=== PATIENT | male | born 1970 | race Caucasian/White ===

== ENCOUNTER → 2020-06-22 11:27 | Outpatient (BNVA) | payer OTHER, SELFPAY | PROVIDERS: PCP Hospitalist; Visit Provider Physician Assistant Medical | DX: S63.502A Unspecified sprain of left wrist, initial encounter (principal); S70.01XA Contusion of right hip, initial encounter; S29.011A Strain of muscle and tendon of front wall of thorax, initial encounter; S23.41XA Sprain of ribs, initial encounter; W01.198A Fall on same level from slipping, tripping and stumbling with subsequent striking against other object, initial encounter | CPT/HCPCS: 73110; 73502; 99203 ==

== ENCOUNTER → 2020-06-24 11:45 | Outpatient (BNVA) | payer OTHER, SELFPAY | PROVIDERS: PCP Hospitalist; Visit Provider Physician Assistant Medical | DX: S70.01XA Contusion of right hip, initial encounter (principal); S63.502A Unspecified sprain of left wrist, initial encounter; S20.211A Contusion of right front wall of thorax, initial encounter; W18.30XA Fall on same level, unspecified, initial encounter; M46.1 Sacroiliitis, not elsewhere classified | CPT/HCPCS: 99213 ==

== ENCOUNTER → 2020-06-29 14:20 | Outpatient (BNVA) | payer OTHER, SELFPAY | PROVIDERS: PCP Hospitalist; Visit Provider Physician Assistant Medical | DX: S70.01XA Contusion of right hip, initial encounter (principal); S63.502A Unspecified sprain of left wrist, initial encounter; W18.30XA Fall on same level, unspecified, initial encounter; M46.1 Sacroiliitis, not elsewhere classified; Z96.641 Presence of right artificial hip joint | CPT/HCPCS: 99213 ==

== ENCOUNTER → 2020-07-06 14:13 | Outpatient (BNVA) | payer OTHER, SELFPAY | PROVIDERS: PCP Hospitalist; Visit Provider Physician Assistant Medical | DX: S70.01XD Contusion of right hip, subsequent encounter (principal); S63.502D Unspecified sprain of left wrist, subsequent encounter; S20.212D Contusion of left front wall of thorax, subsequent encounter; T84.091D Other mechanical complication of internal left hip prosthesis, subsequent encounter; W18.30XD Fall on same level, unspecified, subsequent encounter | CPT/HCPCS: 99213 ==

== ENCOUNTER → 2020-07-21 13:47 | Outpatient (BNVA) | payer OTHER, SELFPAY | PROVIDERS: PCP Hospitalist; Visit Provider Physician Assistant Medical | DX: S63.502D Unspecified sprain of left wrist, subsequent encounter (principal); X58.XXXD Exposure to other specified factors, subsequent encounter | CPT/HCPCS: 99213 ==

== ENCOUNTER 2020-08-01 12:52 | Outpatient (REF) | payer OTHER, SELFPAY ==
--- NOTE | 2020-08-01 13:05 | MR_ITS ---
EXAMINATION: MRI WRIST, LEFT, WITHOUT CONTRAST CLINICAL INFORMATION: Persistent wrist pain and decreased range of motion, instability, status post fall in June 2020. Patient reports posterior pain, weakness, clicking. COMPARISON: Radiographs of wrist from 06/22/2020 TECHNIQUE: MR imaging of the left wrist was performed using standard sequences on a high-field 1.5 Jessica magnet. FINDINGS: BONES AND JOINTS: The distal radius, ulna and radioulnar joint are intact. Small amount fluid is present within the distal radioulnar joint. The ulna is properly positioned within the sigmoid notch. Carpal bones have normal alignment. Articular cartilage of the wrist is preserved. Small effusion of the radiocarpal joint could be sequela of recent wrist trauma. There is diffuse bone marrow edema (bone bruising) of the lunate without a discrete fracture line. Also, focal bone marrow edema is observed in the radial aspect of the adjacent triquetrum. There is subcortical cystic change and mild edema-like signal intensity in the distal capitate, possibly sequela old trauma. The capitate cystic change is associated with adjacent 0.3 cm soft tissue ganglion cyst (axial image 9 of 22, series 5). TRIANGULAR FIBROCARTILAGE: The triangular fibrocartilage has an intact appearance on the fat-suppressed proton density weighted sequence. The coronal T2-weighted GRE sequence suggests possibility of a very thin degenerative perforation in the triangular fibrocartilage (coronal image 12 of 24, series 8). The peripheral, fascicular attachments of the TFC to the ulnar styloid and fovea are intact. The volar and dorsal radioulnar ligaments, and ulnotriquetral ligament, are unremarkable. INTRINSIC LIGAMENTS: Scapholunate and lunatotriquetral ligaments are intact. TENDONS: Flexor and extensor tendons of the wrist are unremarkable. No evidence of tendon tear or de Quervain's tenosynovitis. NERVES AND OTHER SOFT TISSUES: Median nerve has normal size and signal intensity as it courses through the carpal tunnel. The radial and ulnar neurovascular bundles are unremarkable. No lesions within Guyon's canal. No ganglion cyst or other soft tissue mass at the wrist. MR/MR wrist LT wo con IMPRESSION: * Bone bruises of the lunate and adjacent triquetrum. However, no discrete fracture or malalignment at the wrist. * Posttraumatic small joint effusions of the radiocarpal joint and distal radioulnar joint. * No evidence of a traumatic ligament injury at the wrist. * Intraosseous and small soft tissue ganglion of the distal capitate.
== END 2020-08-01 12:53 | disposition home or self-care (01) ==
LOC: HO.MRI 12:52
PROVIDERS: Visit Provider Internal Medicine
DX: M25.332 Other instability, left wrist (principal)
CPT/HCPCS: 73221

== ENCOUNTER → 2020-08-04 14:21 | Outpatient (BNVA) | payer OTHER, SELFPAY | PROVIDERS: Visit Provider Physician Assistant Medical | DX: M19.032 Primary osteoarthritis, left wrist (principal); M24.131 Other articular cartilage disorders, right wrist; S60.212A Contusion of left wrist, initial encounter; X50.1XXA Overexertion from prolonged static or awkward postures, initial encounter | CPT/HCPCS: 99213 ==

== ENCOUNTER → 2020-08-15 09:53 | Outpatient (BNVA) | payer OTHER, SELFPAY | PROVIDERS: Visit Provider Orthopaedic Surgery | DX: S69.92XA Unspecified injury of left wrist, hand and finger(s), initial encounter (principal) | CPT/HCPCS: 99202 ==

== ENCOUNTER → 2020-09-05 11:00 | Outpatient (BNVA) | payer OTHER, SELFPAY | PROVIDERS: PCP Hospitalist; Visit Provider Orthopaedic Surgery | DX: S69.92XD Unspecified injury of left wrist, hand and finger(s), subsequent encounter (principal) | CPT/HCPCS: 99212 ==

== ENCOUNTER 2020-10-19 13:24 | Outpatient (REF) | payer OTHER, SELFPAY ==
--- NOTE | ~2020-10-19 | XR_ITS ---
EXAMINATION: XR WRIST, LEFT CLINICAL INFORMATION: Pain COMPARISON: Previous x-ray and MRI June and July 2020 TECHNIQUE: PA, lateral, and oblique views of the left wrist. FINDINGS: The bones and soft tissues are normal. No fracture. Alignment is anatomic with normal joint spaces. No erosions or abnormal soft tissue calcifications. XR/XR wrist LT min 3V IMPRESSION: Normal left wrist.
== END 2020-10-19 13:25 | disposition home or self-care (01) ==
LOC: HO.HOSX 13:24
PROVIDERS: PCP Hospitalist; Visit Provider Orthopaedic Surgery
DX: M25.532 Pain in left wrist (principal)
CPT/HCPCS: 73110; 99212

== ENCOUNTER 2020-12-20 17:24 | Outpatient (REF) | payer OTHER, SELFPAY | END 2020-12-20 17:25 | disposition home or self-care (01) | LOC: HO.HOSX 17:24 | PROVIDERS: Visit Provider Orthopaedic Surgery | DX: Z13.89 Encounter for screening for other disorder (principal) ==

== ENCOUNTER → 2020-12-21 14:03 | Outpatient (BNVA) | payer OTHER, SELFPAY | PROVIDERS: PCP Hospitalist; Visit Provider Orthopaedic Surgery | DX: S69.92XD Unspecified injury of left wrist, hand and finger(s), subsequent encounter (principal) | CPT/HCPCS: 99212 ==

== ENCOUNTER 2021-06-20 09:52 | Emergency (ER) | payer BC, SELFPAY ==
--- NOTE | 2021-06-20 | ECG_ITS ---
Test Reason : chestpain Blood Pressure : / mmHG Vent. Rate : 078 BPM Atrial Rate : 078 BPM P-R Int : 126 ms QRS Dur : 140 ms QT Int : 398 ms P-R-T Axes : 037 -12 029 degrees QTc Int : 453 ms Sinus rhythm with marked sinus arrhythmia Right bundle branch block Abnormal ECG When compared with ECG of 03-OCT-2008 05:05, Right bundle branch block is now Present Referred By: Generic ED Physician Electronically Signed By:
--- NOTE | ~2021-06-20 | XR_ITS ---
EXAMINATION: XR CHEST CLINICAL INFORMATION: Chest pain COMPARISON: None TECHNIQUE: Frontal view of the chest was obtained. FINDINGS: The lungs are clear. There is no pneumothorax, pleural reaction, airspace consolidation, or effusion. No groundglass opacities. The heart is normal in size. The vascularity is normal. The hilar and mediastinal contours and bony structures are unremarkable. XR/XR chest 1V IMPRESSION: Unremarkable examination.
[2021-06-20 10:20] VITALS: BP 146/85; PULSE 87; RESP 18; TEMP 36.1; O2SAT 97; BMI 32.1
--- NOTE | 2021-06-20 10:33 | ED.CHESTPAIN ---
HPI - Chest Pain General Chief Complaint: Chest Pain Stated Complaint: Chest pain Time Seen by Provider: 06/20/21 10:24 Source: patient Mode of arrival: ambulatory Limitations: no limitations History of Present Illness HPI narrative: 50-year-old male with a history of psoriasis who presents to the ER with 3 days of intermittent palpitations and intermittent sharp central and left chest pains. He reports 3 days ago he noticed frequent palpitations that started when he was sitting down. He states it feels like an extra beat. Yesterday with these palpitations he started getting a sharp brief pain associated with them. The pain is in his left and central chest and radiate through him to his back. The pains are brief and do not last. He is slightly nauseous and dizzy at times. He denies SOB. MD complaint: chest pain and other (palpitations) Related Data Home Medications Medication Instructions Recorded Confirmed No Known Home Meds 08/15/20 08/15/20 Allergies Allergy/AdvReac Type Severity Reaction Status Date / Time No Known Allergies Allergy Unknown NOT Verified 12/21/20 14:13 APPLICABLE Review of Systems Review of Systems: Constitutional: No Fever, No Chills ENT/Mouth: No sore throat, No Rhinorrhea, No Swallowing Difficulty Cardiovascular: + Chest Pain, No SOB, No Orthopnea, No Edema, +palpitations Respiratory: No Cough, No Sputum, No Wheezing, No dyspnea Gastrointestinal: No Nausea, No Vomiting, No Diarrhea, No abdominal Pain Genitourinary: No Dysuria, No Urinary Frequency, No Hematuria Musculoskeletal: No joint pain, No Myalgias Skin: No Skin Lesions, No rash Neuro: No Weakness, No Numbness, No Dizziness, No Headache Psych: + Anxiety/Panic, No Depression Heme/Lymph: No Bruising, No Lymphadenopathy PMFSH Past Medical History Medical History (Updated 06/20/21 @ 13:52 by JOHANA Delong) Psoriasis Surgical History Status post total hip replacement, right (~2012) Social History Social History Alcohol intake: current Patient Tobacco Use Status: Never used Tobacco Current occupational status: employed Current occupation: [employer]- Right Handed Physical Exam Vital Signs: Vital Signs: Last Vital Signs Temp 97.0 F 06/20/21 10:20 Pulse 84 06/20/21 12:57 Resp 16 06/20/21 12:57 BP 133/77 06/20/21 12:57 Pulse Ox 96 06/20/21 12:57 Body Mass Index 32.1 Appearance: Alert. Oriented X3. No acute distress. Eyes: Pupils equal, round and reactive to light. ENT: Pharynx normal. Neck: Normal inspection. Neck supple. CVS: Normal heart rate and rhythm. Pulses normal. Respiratory: No respiratory distress. Breath sounds normal. Abdomen: Soft and nontender. +BS x4 Skin: Skin warm and dry. Normal skin color. Normal skin turgor. No rashes. Extremities: No lower extremity edema. Neuro: Oriented X 3. No motor deficit. No sensory deficit. Course Course Course Narrative: 50 y/o male with history of psoriatic arthritis presenting with palpitations and intermittent chest pains for the last 1-3 days. EKG on arrival showing RBBB, no recent prior. No STEMI. He currently has no pain but reports intermittent sensation of extra beats. He states they can occur every 10-15 minutes. No SOB. Doubt ACS. Will check basic labs, troponin and DDIMER to r/o PE. Reevaluation(s) Reevaluation #1: Troponin negative x1. He continues to be chest pain free. Reevaluation #2: Troponin negative x2 and DDIMER negative. His electrolytes and TSH are within normal limits. Unclear etiology of his palpitations but life threatened causes have been ruled out. He admits to underlying anxiety and is wondering if this can be contributing. He was counseled on anxiety, caffiene intake and given referral to Cardiology for further workup. Stable for d/c home with outpatient follow up. Instructed to return if pains worsen or change. MDM - Chest Pain Lab Data Attestation: I reviewed the patient's lab results. Result diagrams: 06/20/21 10:42 06/20/21 10:42 Labs: Lab Results 06/20/21 06/20/21 06/20/21 Range/Units 10:41 10:42 10:42 WBC 6.0 (4.8-10.8) X10*3/uL RBC 4.85 (4.60-5.80) X10*6/uL Hgb 16.1 (14.0-18.0) g/dl Hct 46.3 (42-52) % MCV 95.5 (80-98) fL MCH 33.2 H (27.0-33.0) pg MCHC 34.8 (31.0-36.0) g/dl RDW 11.3 (11.0-16.0) % Plt Count 198 (160-400) X10*3/uL MPV 8.7 L (9.4-12.4) fL Immature Gran % (Auto) 0.3 (0.0-0.4) % Neut % (Auto) 73.2 H (45-73) % Lymph % (Auto) 14.9 L (20-40) % [place] % (Auto) 10.1 (2-11) % Eos % (Auto) 1.0 (0-4) % Baso % (Auto) 0.5 (0-2) % Lymph # (Auto) 0.9 L (1.2-4.9) X10*3/uL [place] # (Auto) 0.6 (0.1-1.2) X10*3/uL Eos # (Auto) 0.1 (0.0-0.4) X10*3/uL Baso # (Auto) 0.0 (0.0-0.2) X10*3/uL Abs Immat Gran (auto) 0.02 (0.00-0.03) X10*3/uL Absolute Neuts (auto) 4.4 (2.0-8.3) X10*3/uL Absolute Nucleated RBC 0.000 (0.0-0.012) X10*3/uL Nucleated RBC % (auto) 0.0 (0.0-0.2) /100WBC D-Dimer NG/ML Sodium 138 (135-145) mmol/L Potassium 4.7 (3.3-5.1) mmol/L Chloride 102 (96-108) mmol/L Carbon Dioxide 24 (22-29) mmol/L Anion Gap 17 (12-20) BUN 9 (9-16) mg/dL Creatinine 1.02 (0.5-1.4) mg/dL Estim Creat Clear Calc 87.1 Estimated GFR > 60 Random Glucose 108 (60-115) mg/dL Calcium 9.5 (8.4-10.2) mg/dL Magnesium 2.0 (1.6-2.6) mg/dL Total Bilirubin 0.7 (0.0-1.0) mg/dL Direct Bilirubin 0.3 (0.0-0.5) mg/dL AST 40 H (5-37) U/L ALT 63 H (0-40) U/L Alkaline Phosphatase 74 (39-117) U/L Troponin I High Sens (<3.5-35.0) ng/L Total Protein 7.2 (6.5-8.0) g/dL Albumin 4.4 (3.5-5.0) g/dL TSH 2.18 (0.32-4.0) uIU/mL COVID-19 ([facility]) Negative (Negative) COVID-19 Clin Com See Note 06/20/21 06/20/21 06/20/21 Range/Units 10:42 13:02 13:02 WBC (4.8-10.8) X10*3/uL RBC (4.60-5.80) X10*6/uL Hgb (14.0-18.0) g/dl Hct (42-52) % MCV (80-98) fL MCH (27.0-33.0) pg MCHC (31.0-36.0) g/dl RDW (11.0-16.0) % Plt Count (160-400) X10*3/uL MPV (9.4-12.4) fL Immature Gran % (Auto) (0.0-0.4) % Neut % (Auto) (45-73) % Lymph % (Auto) (20-40) % [place] % (Auto) (2-11) % Eos % (Auto) (0-4) % Baso % (Auto) (0-2) % Lymph # (Auto) (1.2-4.9) X10*3/uL [place] # (Auto) (0.1-1.2) X10*3/uL Eos # (Auto) (0.0-0.4) X10*3/uL Baso # (Auto) (0.0-0.2) X10*3/uL Abs Immat Gran (auto) (0.00-0.03) X10*3/uL Absolute Neuts (auto) (2.0-8.3) X10*3/uL Absolute Nucleated RBC (0.0-0.012) X10*3/uL Nucleated RBC % (auto) (0.0-0.2) /100WBC D-Dimer < 200 NG/ML Sodium (135-145) mmol/L Potassium (3.3-5.1) mmol/L Chloride (96-108) mmol/L Carbon Dioxide (22-29) mmol/L Anion Gap (12-20) BUN (9-16) mg/dL Creatinine (0.5-1.4) mg/dL Estim Creat Clear Calc Estimated GFR Random Glucose (60-115) mg/dL Calcium (8.4-10.2) mg/dL Magnesium (1.6-2.6) mg/dL Total Bilirubin (0.0-1.0) mg/dL Direct Bilirubin (0.0-0.5) mg/dL AST (5-37) U/L ALT (0-40) U/L Alkaline Phosphatase (39-117) U/L Troponin I High Sens < 3.5 < 3.5 (<3.5-35.0) ng/L Total Protein (6.5-8.0) g/dL Albumin (3.5-5.0) g/dL TSH (0.32-4.0) uIU/mL COVID-19 ([facility]ON[facility]) (Negative) COVID-19 Clin Com ECG Data ECG #1: Attestation: I personally reviewed and interpreted this ECG as follows: ECG interpretation date: 06/20/21 ECG interpretation time: 11:27 Prior ECG tracings: available for review Interpretation: normal sinus rhythm with marked sinus arrythmia, HR 78 bpm, RBBB (new however old EKG is from 2008, no ST segment elevations Discharge Plan Discharge Clinical Impression: Palpitations Patient Disposition: Home, Self-Care Instructions: Heart Palpitations (ED) Additional Instructions: Your lab workup today was normal. Recommend following up with Cardiology for further evaluation - name and number below. If you develop new or worsening symptoms call 911 or come back to the ER for further evaluation. Referrals: Joss Jorgensen MD [Physician] - 2 days (RBBB, palpitations) Stand Alone Forms: Work/School Release Interventions: ED Discharge Assessment Last Done: 06/20/21 14:45 Discharge Date/Time: 06/20/21 14:45
[2021-06-20 10:49] LABS: MANUAL DIFF FLAG NO
[2021-06-20 10:51] LABS: Basophils Percent Auto 0.5 % (0-2); Eosinophils Absolute Auto 0.1 X10*3/uL (0.0-0.4); Hematocrit 46.3 % (42-52); Hemoglobin 16.1 g/dl (14.0-18.0); Imm Gran Abs Auto 0.02 X10*3/uL (0.00-0.03); Imm Gran Pct Auto 0.3 % (0.0-0.4); Lymphocytes Absolute Auto 0.9 X10*3/uL (1.2-4.9); Lymphocytes Percent Auto 14.9 % (20-40); Mean Corpuscular HGB Conc 34.8 g/dl (31.0-36.0); Mean Corpuscular Hemoglobin 33.2 pg (27.0-33.0); Mean Corpuscular Volume 95.5 fL (80-98); Mean Platelet Volume 8.7 fL (9.4-12.4); Monocytes Absolute Auto 0.6 X10*3/uL (0.1-1.2); Monocytes Percent Auto 10.1 % (2-11); Neutrophils Absolute Auto 4.4 X10*3/uL (2.0-8.3); Neutrophils Percent Auto 73.2 % (45-73); Platelet Count 198 X10*3/uL (160-400); Red Blood Count 4.85 X10*6/uL (4.60-5.80); Red Cell Distribution Width 11.3 % (11.0-16.0)
[2021-06-20 11:09] LABS: Alanine Aminotransferase 63 U/L (0-40); Albumin Level 4.4 g/dL (3.5-5.0); Alkaline Phosphatase 74 U/L (39-117); Anion Gap 17 (12-20); Aspartate Amino Transferase 40 U/L (5-37); Bilirubin Direct 0.3 mg/dL (0.0-0.5); Bilirubin Total 0.7 mg/dL (0.0-1.0); Blood Urea Nitrogen 9 mg/dL (9-16); Calcium 9.5 mg/dL (8.4-10.2); Carbon Dioxide 24 mmol/L (22-29); Chloride 102 mmol/L (96-108); Creatinine Clr Calc Pharmacy 87.1; Estimated Glomerular Filt Rate > 60; Glucose Random 108 mg/dL (60-115); Potassium 4.7 mmol/L (3.3-5.1); Sodium 138 mmol/L (135-145); Total Protein 7.2 g/dL (6.5-8.0)
[2021-06-20 11:11] LABS: COVID-19 Test Negative (Negative)
[2021-06-20 11:11] LABS: Troponin-I High Sensitivity < 3.5 ng/L (<3.5-35.0)
[2021-06-20 11:30] LABS: TSH reflex Free T4 2.18 uIU/mL (0.32-4.0)
[2021-06-20 12:57] VITALS: BP 133/77; PULSE 82; PULSE 84; RESP 16; O2SAT 96
[2021-06-20 13:20] LABS: D Dimer < 200 NG/ML
[2021-06-20 13:30] LABS: Troponin-I High Sensitivity < 3.5 ng/L (<3.5-35.0)
== END 2021-06-20 14:45 | disposition home or self-care (01) ==
PROVIDERS: Physician Assistant; Emergency Provider Emergency Medicine; PCP Hospitalist
DX: R00.2 Palpitations (principal); R07.9 Chest pain, unspecified; Z20.822 Contact with and (suspected) exposure to COVID-19
CPT/HCPCS: 36415; 71045; 80048; 80076; 83735; 84443; 84484; 85025; 85379; 87635; 93005; 99284

== ENCOUNTER → 2021-07-13 14:37 | Outpatient (BNVA) | payer BC, SELFPAY | PROVIDERS: PCP Hospitalist; Referring Provider Hospitalist; Visit Provider Internal Medicine ==

== ENCOUNTER → 2021-07-26 13:20 | Outpatient (REF) | payer BC, SELFPAY ==
--- NOTE | 2021-07-26 13:24 | HM_ITS ---
Conclusion: 1. Patient was monitored for total period of 3 days 2. Baseline rhythm is normal sinus rhythm with average of 95 beats per minute with frequent sinus tachycardia, 34 % of time heart rate about 100 beats per minute in sinus tachycardia 4. Total of 2658 PVCs accounting for 0.94% of total burden of chronic for occasional PVCs 5. No patient reported events MTDD
== END ==
LOC: HO.CARD 13:20
PROVIDERS: Visit Provider Internal Medicine
DX: I45.10 Unspecified right bundle-branch block (principal); R00.2 Palpitations
CPT/HCPCS: 93242

== ENCOUNTER → 2021-08-07 10:50 | Outpatient (REF) | payer BC, SELFPAY ==
--- NOTE | 2021-08-07 10:54 | CA_ITS ---
Acquisition Time: 2021-08-07 11:00:56 Total Exercise Time: 00:05:30 Test Indications: CP, SOB Medications: SEE CHART Protocol: GENARO Max HR: 164 BPM 97% of Pred: 168 BPM Max BP: 164/084 mmHG Max Work Load: 7.0 METS Exercise stress test with exercise 5 min 30 sec of genaro protocol, without anginal symptoms, with isolated PVC, with normotensive response to exercise, without EKG changes meeting criteria for ischemia. Echo images obtained by tech at rest and immediately post peak exercise. Definity contrast used. Test reviewed with Dr Jorgensen. Referred By: Joss Jorgensen Overread By: GEE CUNHA
== END ==
LOC: HO.CARD 10:50
PROVIDERS: Visit Provider Internal Medicine
DX: R07.2 Precordial pain (principal)
CPT/HCPCS: 93350; Q9957

== ENCOUNTER → 2021-09-22 11:20 | Outpatient (REF) | payer BC, SELFPAY ==
--- NOTE | 2021-09-22 11:26 | CA_ITS ---
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 Study Quality: Fair Conclusions: - Normal left ventricular size and systolic function. - Diastolic function is normal for age. - Normal right ventricular cavity size and systolic function. Findings Left Ventricle Normal left ventricular size and systolic function. There is mildly increased left ventricular wall thickness. The visually estimated ejection fraction is between 55-60%. There is no evidence of regional wall motion abnormalities. Diastolic function is normal for age. Right Ventricle Normal right ventricular cavity size and systolic function. Atria Both atria are normal in size. Aortic Valve Normal aortic valve structure and function. There is no aortic valve stenosis. There is no aortic valve regurgitation. Mitral Valve Normal mitral valve structure and function. There is mild mitral annular calcification. There is no mitral valve regurgitation. There is no mitral valve stenosis. Pulmonic Valve Normal pulmonic valve structure and function. There is trace pulmonic valve regurgitation. Tricuspid Valve Normal tricuspid valve structure. There is trace tricuspid valve regurgitation. Normal right atrial pressure. There is no evidence of pulmonary hypertension. Great Vessels All visible segments of the aorta are normal in size. The visualized portions of the pulmonary artery and branches are normal. Venous The inferior vena cava is normal in size and collapses greater than 50% with inspiration. Pericardium/Pleural There is no evidence of pericardial effusion. Prior Study Comparison No prior study available for comparison. Measurements 2D Linear Measurements IVSd: 0.89 0.6-0.9/0.6-1.0 cm LVIDd: 4.43 3.9-5.3/4.2-5.9 cm LVIDd Index: 2.24 2.4-3.2/2.2-3.1 cm/m2 LVIDs: 3.16 2.0-3.6 cm LVPWd: 0.97 0.7-1.1 cm Ao Root: 3.40 2.1-3.5 cm LA Diam: 3.10 2.7-3.8/3.0-4.0 cm LAIDs Index: 1.57 1.5-2.3 cm/m2 LV Mass: 168.27 67-162/88-224 g LV Mass Index: 84.99 43-95/49-115 g/m2 LVOT Diam: 2.10 3.0+(-)1.3 cm 2D Systolic Function EF 4C: 54.80 >55% EF 2C: 55.50 >55% EF BiP: 54.10 >55% Mitral Valve MV Pk E: 1.00 MV PK A: 0.72 MV Decel Time: 219.00 E/A: 1.40 E'Lateral: 10.70 E'Medial: 9.03 E/E' Med: 11.10 E/E' Lat: 9.30 PHT: 64.00 MVA PHT: 3.44 Decel Kimble: 4.58 Aortic Valve AoV Pk Kamari: 1.32 AoV Mn Kamari: 1.03 AoV VTI: 0.30 AoV Pk Grad: 7.00 Aov Mn Grad: 5.00 YONI Cont.VTI: 2.88 LVOT LVOT Pk Kamari: 1.18 LVOT Mn Kamari: 0.80 LVOT VTI: 0.25 LVOT Pk Grad: 6.00 LVOT Mn Grad: 3.00 LVOT Diam: 2.10 LVOT Area: 3.46 Diastolic Function MV Pk E: 1.00 MV Pk A: 0.72 E/A: 1.40 E'Medial: 9.03 E/E' Med: 11.10 E' Laterial: 10.70 E/E' Lat: 9.30 Right Ventricle TAPSE (mm): 3.00 TVS' Kamari: 13.00 Tricuspid Valve TR Pk Kamari: 1.41 TR Pk Grad: 8.00 RA Press: 3.00 RVSP: 11.00 Great Vessels Aorta Ao Root-2D: 3.40 2.0-3.7 cm Ao Asc: 3.20 2.1-3.4 cm Ao Arch: 2.80 Updated in Other Vendor System with Status of Final Manolo Smith MD electronically signed on 09/23/2021 8:05:13 PM with status of Final
== END ==
LOC: HO.CARD 11:20
PROVIDERS: PCP Hospitalist; Visit Provider Internal Medicine
DX: I25.10 Atherosclerotic heart disease of native coronary artery without angina pectoris (principal)
CPT/HCPCS: 93306

== ENCOUNTER → 2021-09-27 14:42 | Outpatient (BNVA) | payer BC, SELFPAY | PROVIDERS: PCP Hospitalist; Referring Provider Hospitalist; Visit Provider Internal Medicine ==

== ENCOUNTER → 2021-10-05 14:42 | Outpatient (REF) | payer BC, SELFPAY | LOC: HO.SL 14:42 | PROVIDERS: PCP Hospitalist; Visit Provider Internal Medicine | DX: G47.33 Obstructive sleep apnea (adult) (pediatric) (principal) | CPT/HCPCS: 95806 ==

== ENCOUNTER 2021-10-25 10:30 | Emergency (ER) | payer OTHER, SELFPAY ==
--- NOTE | ~2021-10-25 | XR_ITS ---
EXAMINATION: XR KNEE, LEFT CLINICAL INFORMATION: Knee injury COMPARISON: None TECHNIQUE: Four views of the left knee. FINDINGS: Bone alignment is normal. No acute fracture or dislocation is seen. There are well-corticated soft tissue ossifications adjacent to the lateral femoral condyle which may be related to old trauma. There is heterogeneous increased attenuation in the distal femoral shaft. Differential would include a bone infarct and possible cartilaginous bone lesion. The joint spaces are normal. There is no joint effusion. XR/XR knee LT 4V IMPRESSION: No acute fracture or dislocation. No joint effusion. Soft tissue calcification or ossification adjacent to the lateral femoral condyle probably related to old trauma. Heterogeneous increased attenuation in the distal femoral shaft questionable for old bone infarct versus cartilaginous bone lesion.
[2021-10-25 10:42] VITALS: BP 170/99; PULSE 99; RESP 18; TEMP 37.2; O2SAT 96; BMI 33.3
--- NOTE | 2021-10-25 12:23 | ED_ITS ---
HPI - Extremity Injury (Lower) General Chief Complaint: Extremity Injury, Lower Stated Complaint: L knee pain/work inj Time Seen by Provider: 10/25/21 11:38 Source: patient Mode of arrival: ambulatory Limitations: no limitations History of Present Illness HPI Narrative: 51-year-old male who works at the [employer] presenting to the ED with complaints of left knee pain after he hyperextended it on a slippery at work prior to arrival. He reports he heard a ?pop?. Since then he has been having pain at the lateral aspect of his left knee. He denies head injury loss of consciousness or any paresthesias or any other injuries complaints or concerns at this time. 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) Injury: Left: knee Type of Injury: hyperextension Place: work Severity: moderate Relieving factors: nothing Exacerbating factors: weight bearing, movement and palpation Context: other (near fall) Associated symptoms: snap/pop sensation and ambulatory Other symptoms: none Related Data Home Medications Medication Instructions Recorded Confirmed secukinumab 150 mg/mL subcutaneous mg SUBCUT Q4W 09/27/21 09/27/21 pen injector (Cosentyx Pen 300 mg/2 Pens () Previous Rx's Medication Instructions Recorded naproxen 500 mg tablet 500 mg PO BID PRN #14 tab 10/25/21 oxycodone 5 mg tablet 5 mg PO Q6H PRN #14 tab 10/25/21 Allergies Allergy/AdvReac Type Severity Reaction Status Date / Time No Known Allergies Allergy Unknown NOT Verified 09/27/21 14:46 APPLICABLE Review of Systems Review of Systems: Constitutional : No Weight loss, No Fever, No Chills, No Night Sweats, No Fatigue, No Malaise ENT/Mouth : No Hearing loss, No Ear Pain, No Nasal Congestion, No Sinus Pain, No Hoarseness, No sore throat, No Rhinorrhea, No Swallowing Difficulty Eyes: No Eye Pain, No Swelling, No Redness, No Foreign Body, No Discharge, No Vision Changes Cardiovascular : No Chest Pain, No SOB, No Dyspnea on Exertion, No Orthopnea, No Edema, No Palpitations Respiratory : No Cough, No Sputum, No Wheezing, No Smoke Exposure, No Dyspnea Gastrointestinal : No Nausea, No Vomiting, No Diarrhea, No Constipation, No abdominal Pain, No Hematochezia, No Melena Genitourinary : no irregular bleeding, No Dysuria, No Urinary Frequency, No Hematuria, No Urinary Incontinence, No Urgency, No Flank Pain, No Urinary Flow Changes, No Hesitancy Musculoskeletal : + joint pain, No Myalgias, No Joint Swelling Skin : No Skin Lesions, No rash Neuro : No Weakness, No Numbness, No Paresthesias, No Loss of Consciousness, No Dizziness, No Headache Psych : No Anxiety/Panic, No Depression, No SI/HI/AH/VH, No Social Issues, Heme/Lymph: No Bruising, No Bleeding,No Lymphadenopathy Endocrine : No Polyuria, No Polydipsia, No Temperature Intolerance Yes all other systems are reviewed and are negative [facility] Past Medical History Attestation statement: The following information was validated with the patient. Medical History Psoriasis Surgical History Status post total hip replacement, right (~2012) Family History Family History Father No problems noted. Mother Congestive heart failure Social History Social History Alcohol intake: current Patient Tobacco Use Status: Never used Tobacco Advance Directives: No Advance Directives Information Provided: No Current occupational status: employed Current occupation: [employer]- Right Handed Physical Exam Vital Signs: Vital Signs: Last Vital Signs Temp 98.9 F 10/25/21 10:42 Pulse 99 10/25/21 10:42 Resp 18 10/25/21 10:42 BP 170/99 H 10/25/21 10:42 Pulse Ox 96 10/25/21 10:42 BMI result Body Mass Index 33.3 vital signs have been reviewed as normal and appeared to be correct. Blood pressure 170/99 Heart rate normal. Respiration rate normal. Temperature normal. Oxygen saturation normal. Appearance: Alert. Oriented X3. No acute distress. Head: Normal external exam. Normocephalic. Atraumatic. Eyes: PERRLA. EOMI. Conjunctiva and sclera normal. Eyelids normal. ENT: Pharynx normal. Uvula midline. Moist mucous membranes. Neck: Normal inspection. Neck supple. FROM. CVS: Normal heart rate and rhythm. Respiratory: No respiratory distress. Painless inspiration. Skin: Skin warm and dry. Normal skin color. Normal skin turgor. No rashes/lesions/lacerations noted. Extremities: To the left knee at the lateral aspect patient has mild soft tissue swelling and tenderness palpation. No obvious deformities or joint effusions noted. No obvious ligamentous or tendon injury. Patient has full range of motion of left knee. No signs of infection. Not consistent with septic joint. He has a normal steady gait. There is no lower extremity edema or calf tenderness noted. Otherwise all other Extremities exhibit normal range of motion and nontender. Neuro: Oriented X 3. No motor deficit. No sensory deficit. Reflexes normal. Normal steady gait. No focal neuro deficits noted. Vascular: + radial pulses/+ 2 distal pedal pulses/+2 dorsalis pedis b/l. Normal cap refill. No cyanosis noted to upper extremity nails and lower extremity toes nails. Course Course Course Narrative: 51-year-old male who works at the [employer] presenting to the ED with complaints of left knee pain after he hyperextended it on a slippery at work prior to arrival. He reports he heard a ?pop?. Since then he has been having pain at the lateral aspect of his left knee. He denies head injury loss of consciousness or any paresthesias or any other injuries complaints or concerns at this time. X-ray negative for fracture or dislocation although iron printed out the results and given to the patient because a report soft tissue calcification adjacent to the lateral femoral condyle probably related to old trauma. Patient does not recall any old trauma. This is where the patient is having some of his pain. The x-ray also reported heterogeneous increased attenuation in the distal femur shaft questionable for old bone infarct versus cartilaginous bone lesion. Therefore patient continues to the deny any old trauma. Therefore print out the results and handed to the patient explained to him that he should follow-up with Orthopedics/PCP and were connection for further evaluation treatment. Will place in a knee mobilizer and treat symptomatic with instructions return if any new or worsening symptoms follow-up with primary care provider. Patient understands agrees with this plan. MDM - Extremity Injury (Lower) Medical Records Attestation: I reviewed the patient's medical records. Imaging Data left knee xray: Attestation: I personally reviewed and interpreted this imaging study as follows: Radiologist's impression: FINDINGS: Bone alignment is normal. No acute fracture or dislocation is seen. There are well-corticated soft tissue ossifications adjacent to the lateral femoral condyle which may be related to old trauma. There is heterogeneous increased attenuation in the distal femoral shaft. Differential would include a bone infarct and possible cartilaginous bone lesion. The joint spaces are normal. There is no joint effusion.? XR/XR knee LT 4V IMPRESSION: No acute fracture or dislocation. No joint effusion. Soft tissue calcification or ossification adjacent to the lateral femoral condyle probably related to old trauma. Heterogeneous increased attenuation in the distal femoral shaft questionable for old bone infarct versus cartilaginous bone lesion. Procedures Orthopedic Splinting/Casting Injury #1: Side: left Lower Extremity Injury Location: knee Lower Extremity Immobilizer: knee immobilizer Discharge Plan Discharge Clinical Impression: Fall, Left knee sprain, Work related injury Patient Disposition: Home, Self-Care Instructions: Knee Sprain (DC), Knee Immobilizer (ED) Additional Instructions: TECHNIQUE: Four views of the left knee. FINDINGS: Bone alignment is normal. No acute fracture or dislocation is seen. There are well-corticated soft tissue ossifications adjacent to the lateral femoral condyle which may be related to old trauma. There is heterogeneous increased attenuation in the distal femoral shaft. Differential would include a bone infarct and possible cartilaginous bone lesion. The joint spaces are normal. There is no joint effusion.? XR/XR knee LT 4V IMPRESSION: No acute fracture or dislocation. No joint effusion. Soft tissue calcification or ossification adjacent to the lateral femoral condyle probably related to old trauma. Heterogeneous increased attenuation in the distal femoral shaft questionable for old bone infarct versus cartilaginous bone lesion. You should follow-up with your primary care provider or Orthopedics for this possible old bone infarct versus cartilage bone lesion Prescriptions: New naproxen 500 mg tablet 500 mg PO BID PRN (Reason: pain) Qty: 14 0RF oxycodone 5 mg tablet 5 mg PO Q6H PRN (Reason: pain) Qty: 14 0RF No Action Cosentyx Pen (2 Pens) 150 mg/mL pen injector subcut Q4W 0RF Referrals: [facility] [Provider Group] - 2 days Turner Davis [Primary Care Provider] - 2 days Georgina,Ty, MD [Physician] - 2 days (Call to make a follow-up appointment within the next 1-2 weeks) Stand Alone Forms: Work/School Release Print Language: Icelandic
== END 2021-10-25 12:35 | disposition home or self-care (01) ==
PROVIDERS: Emergency Provider Emergency Medicine; PCP Hospitalist
DX: S83.92XA Sprain of unspecified site of left knee, initial encounter (principal); W18.49XA Other slipping, tripping and stumbling without falling, initial encounter; Y93.89 Activity, other specified; Y92.59 Other trade areas as the place of occurrence of the external cause; Y99.0 Civilian activity done for income or pay
CPT/HCPCS: 73564; 99283

== ENCOUNTER → 2022-08-20 14:42 | Outpatient (REF) | payer BC, SELFPAY | LOC: HO.CARD 14:42 | PROVIDERS: PCP Nurse Practitioner Family; Visit Provider Internal Medicine | DX: I49.3 Ventricular premature depolarization (principal) | CPT/HCPCS: 93242 ==